=== PATIENT | male | born 1995 | race Caucasian/White ===

== ENCOUNTER 2016-06-27 10:11 | Emergency (ER) | payer BC ==
[~2016-06-27] VITALS: Ht 182.9 cm; Wt 62.9 kg
[2016-06-27 10:15] VITALS: TEMP 37; Ht 182.9 cm; Wt 62.9 kg
[2016-06-27] MEDS ORDERED: XYLOCAINE 1%/SOD BICARB 20 ML VIAL INFIL ONE (11:15)
--- NOTE | 2016-06-27 11:45 | DIAGNOSTIC IMAGING REPORT ---
CT OF THE HEAD WITHOUT CONTRAST CLINICAL HISTORY: Syncope with nausea and vomiting. COMPARISON STUDY: No previous studies for comparison. CT DOSE: 1459.56 mGycm TECHNIQUE: Helical axial images of the head were obtained without IV contrast. Automated exposure control was utilized for the study. FINDINGS: No acute intracranial hemorrhage, midline shift or mass effect is present. Ventricular system is normal. Basilar cisterns are patent. There are no extra-axial collections. So-white differentiation is maintained. There are no findings to suggest acute dural sinus thrombosis or acute territorial infarct. There is no calvarial fracture. There is mild mucosal thickening of the ethmoid and maxillary sinuses. IMPRESSION: 1. No acute intracranial findings. 2. No calvarial fracture. 3. Mild mucosal thickening of the sinuses. Electronically signed by: Christos Hodges M.D. 06/27/2016 11:44 AM Dictated Date/Time: 06/27/2016 11:42 AM
[2016-06-27 12:46] VITALS: BP 110/63; PULSE 70; O2SAT 99
--- NOTE | 2016-06-29 16:39 | EMERGENCY ROOM VISIT NOTE ---
ED Visit Note First contact with patient: 10:40 Chief Complaint: I passed out and cut my head. History of Present Illness: Mr. Palacio is a 20-year-old white male who brought via ambulance into the ED accompanied by female friend complaining of a syncopal episode and a scalp laceration. Historically patient reports he does not tolerate medical testing or procedures well and normally has near syncopal episodes when he has to have these procedures performed. Patient reports approximately one hour before he came into the emergency department he was having a mammogram of his left breast after he was found to have a small lump under the nipple. He reports during the procedure he had a syncopal episode and fell to the ground and sustained an occipital laceration. Patient reports there was no extended loss of consciousness and since the fall/ syncopal episode he has had a mild posterior headache and has been intermittently nauseated. Currently he places his headache in the area of his laceration on the occipital scalp. He describes his pain as an achy sensation. He rates his discomfort 2/ 10. His pain is nonradiating. His pain worsens with palpation. He has not identified any alleviating factors related to the pain. He has not taken any medications for his pain prior to arrival at the hospital. Review of Systems: As noted above in history of present illness. 8 body systems were reviewed and found to be negative as noted above. Past Medical History: Patient denies. Current Medication: Patient denies. Allergies to Medications: Patient denies. Social History: Patient is currently University student; he feels safe in his home environment; he denies tobacco and alcohol use. Tetanus Immunization Status: Patient reports up-to-date. Physical Examination: Vital Signs: Date Time Temp Pulse Resp B/P Pulse Ox O2 Delivery O2 Flow Rate FiO2 06/27/16 12:46 70 14 110/63 99 06/27/16 11:59 72 18 119/70 99 Room Air 06/27/16 10:15 37.0 72 18 112/69 99 Room Air GENERAL: 20-year-old male in mild distress due to pain, nontoxic-appearing, afebrile and hemodynamically stable. NEUROLOGICAL: Awake, alert and oriented to person, place and time. Answering questions appropriately and following commands. Normal gait. Good hand eye coordination. No focal motor sensory deficits. Romberg test positive. Pronator drift test negative. Cranial nerves II through XII grossly intact. Normal rapid all movements of the hands and fingers. Normal heel hernandez test. Good short-term and long-term recall. Able to spelling count backwards. SKIN: Warm, dry and pink. Occipital Scalp: 2.1 cm full-thickness laceration. No active bleeding. HEENT: Atraumatic and normocephalic. Skull: No bony deformity, depressions, crepitus with mild tenderness over the area of his laceration. No raccoon's eyes or ahn signs. No drainage from ears and nostril; no hemotympanum. Face : No bony deformity, crepitus, swelling or ecchymosis. PERRLA. EOMI. funduscopic examination is unremarkable with the normal-appearing optic disc and no signs of increased intracranial pressure. Sclera white and conjunctiva pink. No malocclusion. No intraoral trauma. Airway patent. Speech normal. No lymphadenopathy. Trachea midline. No jugular venous distention. BACK: No tenderness over the bony cervical and thoracic spine. No tenderness throughout the paraspinous muscles. Full range of motion of the cervical spine. THORAX: Lungs sounds are clear to auscultation and equal bilaterally with symmetrical chest wall. EXTREMITIES: Moves all extremities well on command and with purpose. All distal neurovascular statuses are intact and equal bilaterally. 5/5 muscle strength in all movements of the shoulders, elbows, forearms, wrists, hands, hips, knees and ankles. ED Course: Patient is assessed as noted above. EKG: Was read by myself and reviewed with Dr. Jung; shows sinus bradycardia with sinus arrhythmia at 58 bpm. Left axial deviation. No acute ST changes indicating ischemia, injury or infarction. No previous to compare. Head CT: Was read by myself and the radiologist showing no acute intracranial abnormalities or skull fracture. Radiologist does note mild mucosal thickening of the sinuses. Wound Repair: Complexity: Basic Verbal consent was obtained after the risks and benefits were explained. The skin was prepped with betadine and a sterile field set. Wound edges of the wound was anesthetized with 2.2 ml buffered 1% lidocaine. The wound was explored for foreign bodies and none found. Copious irrigation was performed using sterile saline. With direct pressure the bleeding subsided. Debridement was not performed. The wound edges were approximated using 3 jose luis Good approximation was achieved and bleeding was controlled. Antibacterial ointment and a sterile dressing applied. No complications and the patient tolerated the procedure well. Patient was educated about tonight's findings and instructed on his treatment plan; he verbalizes understanding and agreement with this plan. Clinical Impression: Laceration of the scalp. Syncope. Disposition: Patient discharged home in stable condition; prior to departure he was reassessed and subjectively reported he was feeling better. Plan: Comfort measures, wound care, signs of infection and signs of head injury were discussed with the patient. Patient was encouraged to follow-up with personal physician or return emergency department for signs of infection and/or suture removal in 10-12 days. Patient was encouraged return to the ED for any signs of worsening head injury or any new/concerning symptoms.
== END 2016-06-27 12:48 | disposition home or self-care (01) ==
LOC: EDBD 10:11 → C.EDC 10:12
DX: S01.01XA Laceration without foreign body of scalp, initial encounter (principal); W18.39XA Other fall on same level, initial encounter; R55 Syncope and collapse

== ENCOUNTER → 2016-06-27 | Outpatient (CLI) | payer BC ==
--- NOTE | 2016-06-27 12:26 | MAMMOGRAPHY REPORT ---
MALE BILATERAL DIGITAL DIAGNOSTIC MAMMOGRAM TOMOSYNTHESIS WITH CAD: 06/27/2016 CLINICAL HISTORY: 20-year-old male who presented with a palpable lump in the left breast. Patient d enied tenderness or nipple discharge. TECHNIQUE: Breast tomosynthesis was attempted. However, after the first right CC image was obtaine d, the patient had a vasovagal reaction and fell to the floor hitting his head. No subsequent image s were able to be obtained. Ultrasound was unable to be performed. COMPARISON: No prior exams were available for comparison. FINDINGS: The breast parenchyma is nearly entirely fatty. There is breast tissue development in the subareolar right breast, compatible with gynecomastia. No obvious mass, architectural distortion o r cluster of microcalcifications are seen in the right breast. These findings are compatible with g ynecomastia. The remainder of the mammographic images and ultrasound were unable to be performed for complete wor kup and particularly in the area of the patient's complaint, within the left breast due to his head injury. The patient was assessed in our mammography room. He denied any dizziness or further light headedness. He was mentating normally. Nevertheless he was taken to the emergency department for f urther/complete assessment given the head trauma. The patient will be contacted to return to our department at his convenience for complete evaluation of his left breast complaint. IMPRESSION: ACR BI-RADS CATEGORY 2: BENIGN There is evidence of right gynecomastia. The left breast was unable to be evaluated mammographicall y or sonographically as the patient had a vasovagal reaction during the right mammography, with subs equent fall and head injury. He was taken to the emergency department vis ambulance for further ass essment. He will be contacted to return to our department at his convenience for complete assessmen t in both breasts. Approximately 10% of breast cancers are not detected with mammography. A negative mammographic repor t should not delay biopsy if a clinically suggestive mass is present. Jennifer Day M.D. ay/:06/27/2016 10:44:47 Buggyman: Reina GALDAMEZ(Alexandre)(Hilda), [facility] letter sent: Normal 1/2 BI-RADS Code: ACR BI-RADS Category 2: Benign
== END | disposition home or self-care (01) ==
LOC: C.MAMM 09:27
PROVIDERS: ATTEND Obstetrics & Gynecology
DX: N62 Hypertrophy of breast (principal)